=== PATIENT | female | born 2000 | race African-American/Black ===

== ENCOUNTER 2023-05-18 16:46 | Outpatient (CLI) | payer OTHER, SELFPAY ==
--- NOTE | ~2023-05-18 | US_ITS ---
US thyroid INDICATION: Thyroid nodule TECHNIQUE: Real-time sonographic images of the thyroid gland were obtained. COMPARISON: No prior studies for comparison. FINDINGS: The right thyroid lobe measures 6.3 x 2.5 x 2.8 cm. The left thyroid lobe measures 6.3 x 1 .5 x 2.1 cm. There is normal echotexture and echogenicity throughout the thyroid gland. There is a co mplex predominantly cystic mass of the right lobe which is wider than tall, smoothly marginated witho ut echogenic foci. There are areas of soft tissue nodularity along the margin of the cyst. The mass m easures 2.5 x 2.3 x 1.9 cm. No masses in the left lobe. Normal vascular flow is present. IMPRESSION: 1. Probable benign cystic mass of the right lobe measuring up to 2.5 cm. Consider follow-up ultrasou nd in 12 months. Reviewed, dictated and finalized at location A. IMPRESSION: 1. Probable benign cystic mass of the right lobe measuring up to 2.5 cm. Consi gonzalo follow-up ultrasound in 12 months.
== END 2023-05-18 16:47 | disposition home or self-care (01) ==
PROVIDERS: PCP Physician Assistant; Visit Provider Physician Assistant
DX: E04.1 Nontoxic single thyroid nodule (principal)
CPT/HCPCS: 76536